=== PATIENT | male | born 1965 | race African-American/Black ===

== ENCOUNTER 2018-12-19 06:57 | Day surgery (SDC) | payer MEDICARE, MEDICAID ==
[2018-12-11 11:21] LABS: HEMATOCRIT 41.2 % (37.9-51.0); HEMOGLOBIN 13.8 g/dL (13.5-17.0); MEAN CORPUSCULAR HEMOGLOBIN 29.5 pg (27.0-33.4); MEAN CORPUSCULAR HGB CONC 33.6 g/dL (32.0-36.0); MEAN CORPUSCULAR VOLUME 88 fl (80-97); PLATELET COUNT 168 10^3/uL (150-450); RED BLOOD COUNT 4.69 10^6/uL (4.35-5.55); RED CELL DISTRIBUTION WIDTH 14.8 % (11.5-14.0); WHITE BLOOD COUNT 4.7 10^3/uL (4.0-10.5)
[2018-12-11 11:46] LABS: ANION GAP 14 (5-19); BLOOD UREA NITROGEN 41 mg/dL (7-20); CALCIUM 10.1 mg/dL (8.4-10.2); CARBON DIOXIDE 23 mmol/L (22-30); CHLORIDE 105 mmol/L (98-107); GLUCOSE 86 mg/dL (75-110); POTASSIUM 4.4 mmol/L (3.6-5.0)
[~2018-12-19 06:57] MED LIST: ACETAMINOPHEN 325 MG TABLET PO PRN; BUPIVACAINE HCL 0.5%-EPI 1:200000 INJ/PF 30 ML VIAL ONE; CEFAZOLIN 1 GM/D5W RTU 1 GM/50 ML RTUPB IV PRN; LACTATED RINGERS 1000 ML IV PRN; LIDOCAINE 0.5% INJ-PF (5 MG/ML) 50 ML SDV SUBCUT PRN
[2018-12-19] MEDS ORDERED: CEFAZOLIN 1 GM/D5W RTU 1 GM/50 ML RTUPB IV ONE (07:03)
[2018-12-19] MEDS ORDERED: HYDROMORPHONE HCL INJ/PF 2 MG/ML AMPULE ONE (08:45)
[2018-12-19] MEDS ORDERED: PROMETHAZINE HCL INJ 25 MG/1 ML VIAL ONE (08:45)
[2018-12-19] MEDS ORDERED: FENTANYL CITRATE INJ/PF 100 MCG/2 ML AMPUL ONE ×2 (08:45→10:46)
[2018-12-19] MEDS ORDERED: ACETAMINOPHEN 1,000 MG/100 ML RTUPB IV ONE (08:46)
[2018-12-19] MEDS ORDERED: PROPOFOL INJ 200 MG/20 ML VIAL IV ONE (08:46)
[2018-12-19] MEDS ORDERED: DEXAMETHASONE SOD PHOSPHATE INJ 4 MG/1 ML VIAL ONE (08:46)
[2018-12-19] MEDS ORDERED: MIDAZOLAM 2 MG/2 ML INJ ONE (08:46)
[2018-12-19] MEDS ORDERED: ONDANSETRON HCL INJ/PF 4 MG/2 ML SDV ONE (08:46)
[2018-12-19] MEDS ORDERED: EPHEDRINE SULFATE INJ 50 MG/1 ML AMPULE ONE (08:46)
[2018-12-19] MEDS ORDERED: DIPHENHYDRAMINE HCL 50 MG/ML VIAL IV PRN (10:09)
[2018-12-19] MEDS ORDERED: PROMETHAZINE HCL INJ 25 MG/1 ML VIAL IV PRN ×2 (10:09)
[2018-12-19] MEDS ORDERED: FENTANYL CITRATE INJ/PF 100 MCG/2 ML AMPUL IV PRN ×2 (10:09)
[2018-12-19] MEDS ORDERED: MORPHINE SULFATE 10 MG/ML INJ IV PRN (10:09)
[2018-12-19] MEDS ORDERED: MEPERIDINE HCL/PF INJ 25 MG/1 ML DISP.SYRIN IV PRN (10:09)
--- NOTE | 2018-12-19 10:42 | Operative Report ---
Nonrecallable Operative Report DATE OF SURGERY: 12/19/18 Operative Report: see dictated note PREOPERATIVE DIAGNOSIS: left inguinal hernia POSTOPERATIVE DIAGNOSIS: left inguinal hernia OPERATION: laparoscopic lih SURGEON: MERLINE WATSON 1ST ZIGZAG ELASTIC ATTACHER: PARAMJIT MENDIOLA ANESTHESIA: GA COMPLICATIONS: none ESTIMATED BLOOD LOSS: 5cc INTRAOPERATIVE FINDINGS: see dictaiton PROCEDURE: see dictation
[2018-12-19] MEDS ORDERED: OXYCODONE-ACETAMINOPHEN 5-325 MG TABLET PO PRN (10:43)
--- NOTE | 2018-12-19 10:43 | Discharge Summary ---
Discharge Summary (SDC) - Discharge Final Diagnosis: left inguinal hernia Date of Surgery: 12/19/18 Discharge Date: 12/19/18 Condition: Good Referrals: JOELLEN IRIZARRY MD [Primary Care Provider] - Discharge Diet: As Tolerated Discharge Activity: No Lifting Over 10 Pounds Report the Following to Your Physician Immediately: Nausea, Vomiting, Increase in Pain, Fever over 101 Degrees, Unusual Bleeding, Redness - need f/u with me in 10-14 days.
[2018-12-19] MEDS: FENTANYL CITRATE INJ/PF 100 MCG/2 ML AMPUL IV PRN ×2 (10:45→10:55)
[2018-12-19] MEDS ORDERED: DEXAMETHASONE SOD PHOS INJ 10 MG/1 ML VIAL ONE (10:46)
[2018-12-19] MEDS: HYDROMORPHONE HCL INJ/PF 2 MG/ML AMPULE ONE ×2 (11:15→11:25)
[2018-12-19] MEDS ORDERED: OXYCODONE-ACETAMINOPHEN 5-325 MG TABLET ONE (12:03)
--- NOTE | 2018-12-19 12:39 | EKG REPORT ---
SEVERITY:- ABNORMAL ECG - SINUS RHYTHM ATRIAL PREMATURE COMPLEX PROBABLE LEFT ATRIAL ABNORMALITY LEFT VENTRICULAR HYPERTROPHY CONSIDER ANTERIOR INFARCT PROLONGED QT INTERVAL : Confirmed by: Liseth Fragoso MD 19-Dec-2018 12:38:15
[2018-12-19 13:41] VITALS: BP 128/77
[2018-12-19] MEDS ORDERED: GLYCOPYRROLATE 1 MG/5 ML SYRINGE ONE (15:19)
[2018-12-19] MEDS ORDERED: NEOSTIGMINE METHYLSULFATE 10 MG/10 ML VIAL ONE (15:19)
[2018-12-19] MEDS ORDERED: SUCCINYLCHOLINE CHLORIDE INJ 200 MG/10 ML VIAL ONE (15:19)
[2018-12-19] MEDS ORDERED: ROCURONIUM BROMIDE INJ 50 MG/5 ML VIAL IV ONE (15:19)
--- NOTE | 2018-12-19 15:23 | OPERATIVE REPORT E ---
Operative Report NAME: CLINT KAUFMAN : 1965 AGE: 52Y DATE OF SURGERY: 12/19/2018 ROOM: PREOPERATIVE DIAGNOSIS: LEFT INGUINAL HERNIA. OPERATION: LEFT INGUINAL HERNIORRHAPHY, LAPAROSCOPIC. SURGEON: MERLINE WATSON M.D. CERTIFIED MASTER LOCKSMITH: Tierra Dee PA-C, who was there for the entire procedure, assisting for retraction and wound closure. PROCEDURE: The patient was brought to the operating room in awake, alert, and stable condition, placed on the operating table in supine position, induced under general anesthesia and intubated. The left groin and abdomen were prepped and draped in the usual sterile manner for the procedure. In the supraumbilical position, I made a curvilinear incision in the skin and carried our dissection down through subcutaneous tissue with Bovie cautery. The external oblique fascia was identified. A transverse incision was made in the anterior rectus sheath, and the rectus muscles retracted laterally. We then placed a space maker balloon underneath the muscle on top of the posterior sheath and traced it down to the pubic tubercle. We then insufflated the balloon under direct vision with the camera inside the balloon. Once we had adequate space, we removed the camera and then removed the space maker balloon and inserted the working trocar tip into the umbilical incision. Retroperitoneal space visualization was excellent. We placed two 5 mm ports in the midline for use with the dissection. Once those ports were placed, we turned attention to the pelvis. Identified the pubic tubercle, Andrei's ligament, the transversalis fascia, and the rectus fascia as well as the lateral edge of the rectus fascia. We identified Hesselbach's triangle on both the right and left side, and noted no evidence of a direct inguinal hernia. We turned our attention to the left side. We identified the cord structures and started mobilizing them with blunt and sharp dissection. We then identified a hernia sac that was facing down the cord structures in through the external ring. We mobilized the cord structures in the sac and dissected the sac away from the cord structures with blunt and sharp dissection and performed a posterior mobilization of the sac. Once this was completed, we then fashioned a piece of polypropylene mesh in a 6 x 4 cm piece with the tails of the mesh placed on the lateral aspect of it. We placed the mesh into the retroperitoneum and fixed the mesh to Andrei's ligament with absorbable tacking device. We fixed the anterior side of the mesh to the undersurface of the rectus muscle and then laterally after wrapping the cord we fixed it to the transversalis muscle, being careful not to injure the lateral femoral cutaneous nerve. Once the mesh was fixed in place, we reduced the pneumoperitoneum and removed the ports. We then closed the umbilical fascial defect with a [id number] 0 Vicryl suture and closed the three skin incisions with intracuticular 4-0 Vicryl, and skin was closed with intracuticular 4-0 Monocryl. Steri-Strips completed the procedure. Estimated blood loss was less than 10 mL. Sponge and needle counts correct x2. The patient was transferred to recovery in stable condition. DICTATING PHYSICIAN: MERLINE WATSON M.D. [id number] PHY#: [id number] ID: [id number] JOB#: [id number] ACCT: [id number] cc:MERLINE WATSON M.D. >
== END 2018-12-19 13:20 | disposition home or self-care (01) ==
LOC: OROUT 06:57
PROVIDERS: ATTEND Surgery
DX: K40.90 Unilateral inguinal hernia, without obstruction or gangrene, not specified as recurrent (principal); I12.0 Hypertensive chronic kidney disease with stage 5 chronic kidney disease or end stage renal disease; N18.6 End stage renal disease; I42.9 Cardiomyopathy, unspecified; F17.210 Nicotine dependence, cigarettes, uncomplicated; Z79.899 Other long term (current) drug therapy; Z88.8 Allergy status to other drugs, medicaments and biological substances; Z99.2 Dependence on renal dialysis; Z01.818 Encounter for other preprocedural examination
CPT/HCPCS: 36415 ×2; 84132; 85027; 80048; 93005; 93010; 49650; C1781; J2250; J0690; J3490 ×3; J1100 ×2; J3010; A9270; J1170; J0330; J2405; J2704; J0131; 830; J2550

== ENCOUNTER 2019-06-26 15:38 | Emergency (ER) | payer MEDICARE, MEDICAID ==
[2019-06-26 15:57] VITALS: BP 148/84
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
--- NOTE | 2019-06-26 17:49 | RADIOLOGY REPORT (SQ) ---
EXAM DESCRIPTION: CHEST 2 VIEWS COMPLETED DATE/TIME: 06/26/2019 5:02 pm REASON FOR STUDY: Relief with 4 nitroglycerin and 4 baby aspirin COMPARISON: 08/22/2016 EXAM PARAMETERS: NUMBER OF VIEWS: two views TECHNIQUE: Digital Frontal and Lateral radiographic views of the chest acquired. RADIATION DOSE: NA LIMITATIONS: none FINDINGS: LUNGS AND PLEURA: Subsegmental atelectasis in the lung bases. MEDIASTINUM AND HILAR STRUCTURES: No masses or contour abnormalities. HEART AND VASCULAR STRUCTURES: Cardiomegaly. No alison pulmonary edema. BONES: No acute findings. HARDWARE: None in the chest. OTHER: No other significant finding. IMPRESSION: Cardiomegaly without pulmonary edema. TECHNICAL DOCUMENTATION: JOB ID: [id number] [employer]- All Rights Reserved Reading location - IP/workstation name: [email or web address]
[2019-06-26 18:28] LABS: INTERNATIONAL RATION (INR) 1.11; PROTHROMBIN TIME 14.3 SEC (11.4-15.4)
[2019-06-26 18:29] LABS: PARTIAL THROMBOPLASTIN TIME 31.7 SEC (23.5-35.8)
[2019-06-26 18:36] LABS: ABSOLUTE BASOPHILS # (AUTO) 0.1 10^3/uL (0.0-0.2); ABSOLUTE LYMPHOCYTES (AUTO) 1.7 10^3/uL (0.5-4.7); ABSOLUTE MONOCYTES (AUTO) 0.6 10^3/uL (0.1-1.4); ABSOLUTE NEUT (AUTO) 3.8 10^3/uL (1.7-8.2); EOSINOPHILS % (AUTO) 0.7 % (0-6); HEMATOCRIT 43.1 % (37.9-51.0); HEMOGLOBIN 14.3 g/dL (13.5-17.0); LYMPHOCYTES % (AUTO) 27.4 % (13-45); MEAN CORPUSCULAR HEMOGLOBIN 29.5 pg (27.0-33.4); MEAN CORPUSCULAR HGB CONC 33.3 g/dL (32.0-36.0); MEAN CORPUSCULAR VOLUME 89 fl (80-97); MONOCYTES % (AUTO) 10.2 % (3-13); PLATELET COUNT 157 10^3/uL (150-450); RED BLOOD COUNT 4.86 10^6/uL (4.35-5.55); RED CELL DISTRIBUTION WIDTH 15.2 % (11.5-14.0); SEGMENTED NEUTROPHILS % (AUTO) 60.7 % (42-78); TOTAL CELLS COUNTED % (AUTO) 100 %; WHITE BLOOD COUNT 6.3 10^3/uL (4.0-10.5)
[2019-06-26 18:42] LABS: ALBUMIN 4.7 g/dL (3.5-5.0); ALKALINE PHOSPHATASE 60 U/L (38-126); ANION GAP 11 (5-19); APPEARANCE,URINE CLEAR; ASPARTATE AMINO TRANSFERASE 21 U/L (17-59); BILIRUBIN,DIRECT 0.2 mg/dL (0.0-0.4); BILIRUBIN,TOTAL 0.6 mg/dL (0.2-1.3); BILIRUBIN,URINE NEGATIVE (NEGATIVE); BLOOD UREA NITROGEN 30 mg/dL (7-20); CALCIUM 9.8 mg/dL (8.4-10.2); CARBON DIOXIDE 26 mmol/L (22-30); CHLORIDE 104 mmol/L (98-107); COLOR,URINE YELLOW; CREATINE KINASE 242 U/L (55-170); GLUCOSE 117 mg/dL (75-110); GLUCOSE, URINE 50 mg/dL (NEGATIVE); KETONES,URINE NEGATIVE (NEGATIVE); LEUKOCYTE ESTERASE,URINE NEGATIVE (NEGATIVE); NITRITE,URINE NEGATIVE (NEGATIVE); POTASSIUM 4.2 mmol/L (3.6-5.0); PROTEIN,URINE 100 mg/dL (NEGATIVE); TOTAL PROTEIN 7.6 g/dL (6.3-8.2); URINE SPECIFIC GRAVITY 1.012; UROBILINOGEN,URINE NEGATIVE mg/dL (<2.0)
[2019-06-26 18:54] LABS: CREATINE KINASE MB 0.98 ng/mL (<4.55); TROPONIN I 0.03 ng/mL
[2019-06-26 19:08] LABS: ADD MANUAL MICROSCOPIC YES
[2019-06-26 19:09] LABS: RBC,URINE RARE /HPF
--- NOTE | 2019-06-27 08:50 | EKG REPORT ---
SEVERITY:- ABNORMAL ECG - SINUS RHYTHM ATRIAL PREMATURE COMPLEX PROBABLE LEFT ATRIAL ABNORMALITY LEFT VENTRICULAR HYPERTROPHY WITH STRAIN PATTERN CONSIDER ANTERIOR INFARCT ABNORMAL T, CONSIDER ISCHEMIA, LATERAL LEADS BORDERLINE PROLONGED QT INTERVAL : Confirmed by: Liseth Fragoso MD 27-Jun-2019 08:48:33
== END 2019-06-26 20:08 | disposition left against medical advice (07) ==
LOC: ER 15:38
DX: R07.9 Chest pain, unspecified (principal); R06.02 Shortness of breath; F17.210 Nicotine dependence, cigarettes, uncomplicated; I13.2 Hypertensive heart and chronic kidney disease with heart failure and with stage 5 chronic kidney disease, or end stage renal disease; N18.6 End stage renal disease; Z99.2 Dependence on renal dialysis; I25.2 Old myocardial infarction; Z91.040 Latex allergy status
CPT/HCPCS: 36415; 71046; 80053; 81001; 82550; 82553; 83690; 84484; 85025; 85610; 85730; 93005; 93010; 99281

== ENCOUNTER 2019-07-01 21:17 | Emergency (ER) | payer MEDICARE, MEDICAID ==
--- NOTE | 2019-07-01 21:48 | ER Document Report ---
ED Medical Screen (RME) - General Chief Complaint: Post Surgical Bleeding Stated Complaint: POST OP COMPLICATION Time Seen by Provider: 07/01/19 21:38 Primary Care Provider: JOELLEN IRIZARRY MD [Primary Care Provider] - Follow up as needed Mode of Arrival: Ambulatory Information source: Patient Notes: This 53-year-old male presents the emergency department with bleeding from his left groin. Reports he had a cardiac cath done at [place] today. He reports it was in preparation for kidney transplant. Patient is on dialysis. He reports that started bleeding around 7:00 tonight and has not stopped. Eating noted. Nurse at bedside began holding pressure right away. I have greeted and performed a rapid initial assessment of this patient. A comprehensive ED assessment and evaluation of the patient, analysis of test results and completion of the medical decision making process will be conducted by additional ED providers. Dictation of this chart was performed using voice recognition software; therefore, there may be some unintended grammatical errors. TRAVEL OUTSIDE OF THE [place] IN LAST 30 DAYS: No - Related Data Allergies/Adverse Reactions: lisinopril [Lisinopril] Allergy (Severe, Verified 07/01/19 21:19) Edema mushroom Allergy (Verified 07/01/19 21:19) latex Adverse Reaction (Verified 07/01/19 21:19) oatmeal Allergy (Uncoded 07/01/19 21:19) Past Medical History - Past Medical History Cardiac Medical History: Reports: Hx Congestive Heart Failure, Hx Heart Attack - x1, Hx Hypertension Denies: Hx Atrial Fibrillation, Hx Coronary Artery Disease, Hx Hypercholesterolemia, Hx Peripheral Vascular Disease, Hx Pulmonary Embolism, Hx Heart Murmur Pulmonary Medical History: Denies: Hx Asthma, Hx Bronchitis, Hx COPD, Hx Pneumonia, Hx Respiratory Failure, Hx Sleep Apnea, Hx Tuberculosis Neurological Medical History: Denies: Hx Cerebrovascular Accident, Hx Seizures Renal/ Medical History: Reports: Hx End Stage Renal Disease. Denies: Hx Benign Prostatic Hyperplasia, Hx Kidney Stones, Hx Peritoneal Dialysis Malignancy Medical History: Denies Hx Lung Cancer GI Medical History: Reports: Hx Gastroesophageal Reflux Disease Musculoskeltal Medical History: Denies Hx Arthritis Psychiatric Medical History: Reports: Hx Depression Denies: Hx Bipolar Disorder, Hx Post Traumatic Stress Disorder, Hx Schizophrenia Past Surgical History: Reports: Hx Orthopedic Surgery - Left hand, Hx Pancreatic Surgery, Hx Vascular Surgery - Left AV fistula. Denies: Hx Appendectomy, Hx Bowel Surgery, Hx Cholecystectomy, Hx Coronary Artery Bypass Graft, Hx Gastric Bypass Surgery, Hx Herniorrhaphy, Hx Pacemaker, Hx Tonsillectomy - Immunizations Hx Diphtheria, Pertussis, Tetanus Vaccination: Yes History of Influenza Vaccine for 07/2017 - 12/2017 Season: Yes Influenza Administration Date for 07/2017 - 12/2017 Season: 09/14/18 Physical Exam - Vital signs Vitals: Temp Pulse Resp BP Pulse Ox 98.7 F 93 18 199/91 H 95 07/01/19 21:23 07/01/19 21:23 07/01/19 21:23 07/01/19 21:23 07/01/19 21:23 Course - Vital Signs Vital signs: Temp Pulse Resp BP Pulse Ox 98.7 F 93 18 199/91 H 95 07/01/19 21:23 07/01/19 21:23 07/01/19 21:23 07/01/19 21:23 07/01/19 21:23 Doctor's Discharge - Discharge Referrals: JOELLEN IRIZARRY MD [Primary Care Provider] - Follow up as needed
[2019-07-01 22:09] LABS: ABSOLUTE LYMPHOCYTES (AUTO) 1.1 10^3/uL (0.5-4.7); ABSOLUTE NEUT (AUTO) 9.3 10^3/uL (1.7-8.2); BASOPHILS % (AUTO) 0.3 % (0-2); HEMATOCRIT 38.5 % (37.9-51.0); HEMOGLOBIN 12.9 g/dL (13.5-17.0); LYMPHOCYTES % (AUTO) 9.5 % (13-45); MEAN CORPUSCULAR HEMOGLOBIN 29.7 pg (27.0-33.4); MEAN CORPUSCULAR HGB CONC 33.5 g/dL (32.0-36.0); MEAN CORPUSCULAR VOLUME 89 fl (80-97); MONOCYTES % (AUTO) 8.5 % (3-13); PLATELET COUNT 164 10^3/uL (150-450); RED BLOOD COUNT 4.34 10^6/uL (4.35-5.55); RED CELL DISTRIBUTION WIDTH 15.7 % (11.5-14.0); SEGMENTED NEUTROPHILS % (AUTO) 81.7 % (42-78); TOTAL CELLS COUNTED % (AUTO) 100 %; WHITE BLOOD COUNT 11.3 10^3/uL (4.0-10.5)
--- NOTE | 2019-07-01 22:21 | ER Document Report ---
ED General - General Chief Complaint: Post Surgical Bleeding Stated Complaint: POST OP COMPLICATION Time Seen by Provider: 07/01/19 22:21 Primary Care Provider: JOELLEN IRIZARRY MD [Primary Care Provider] - Follow up as needed Mode of Arrival: Ambulatory Information source: Patient, Relative Notes: HISTORY OF PRESENT ILLNESS: Patient is a 53-year-old male with a past medical history of end-stage renal failure on dialysis who presents with left groin bleeding from a heart catheterization from earlier today. Patient reports that he presented to outside hospital for a scheduled cardiac catheterization, reports had no complications and the catheterization results "were good." Patient reports that they put an occlusive dressing on his left groin sheath site and initially had no bleeding, however after he went home he started to continue bleeding from the same site and is unsure how much blood he lost. Currently he has no other symptoms other than mild groin pain. Location: Left groin Onset: Prior to arrival Provocation: Heart catheterization Quality: Aching, bleeding Radiation: None Severity: Mild Timing: Constant Associated symptoms: None REVIEW OF SYSTEMS: CONSTITUTIONAL : Denies fever or chills, no sweats. Denies recent illness. EENT: Denies eye, ear, throat, or mouth pain or symptoms. Denies nasal or sinus congestion. CARDIOVASCULAR: Denies chest pain. RESPIRATORY: Denies cough, cold, or chest congestion. Denies shortness of delonte ath, difficulty breathing, or wheezing. GASTROINTESTINAL: Denies abdominal pain. Denies nausea, vomiting, or diarrhea. Denies constipation. GENITOURINARY: Denies difficulty urinating, painful urination, burning, frequency, or blood in urine. MUSCULOSKELETAL: Positive for left groin tenderness and bleeding. Denies neck or back pain or joint pain or swelling. SKIN: Denies rash or skin lesions. HEMATOLOGIC : Denies easy bruising or bleeding. LYMPHATIC: Denies swollen, enlarged glands. NEUROLOGICAL: Denies altered mental status or loss of consciousness. Denies headache. Denies weakness or paralysis or loss of use of either side. Denies problems with gait or speech. Denies sensory or motor loss. PSYCHIATRIC: Denies anxiety or stress or depression. All other systems reviewed and negative. PHYSICAL EXAMINATION: GENERAL: Well-appearing, well-nourished and in no acute distress. HEAD: Atraumatic, normocephalic. No scalp deformity, depression, or crepitance. EYES: Pupils are 3 mm and equal/round/reactive to light, extraocular movements intact, sclera anicteric, conjunctiva are normal. ENT: Nares patent bilaterally, oropharynx clear without exudates or palatal petechia. Moist mucous membranes. No tonsil hypertrophy. NECK: Normal range of motion, supple without lymphadenopathy. LUNGS: Breath sounds present, equal, and clear to auscultation bilaterally. No wheezes, rales, or rhonchi. HEART: Regular rate and rhythm without murmurs, rubs, or gallops. 2+ peripheral pulses. Normal capillary refill. ABDOMEN: Soft, nontender, nondistended. Normoactive bowel sounds. No guarding, no rebound. No masses appreciated. BACK: Normal contour, no midline tenderness. Rectal exam deferred. GENITAL: Slow and persistent bleeding from left groin vascular catheterization site, controlled with direct pressure. EXTREMITIES: Normal range of motion, no pitting or edema. No cyanosis. NEUROLOGICAL: No focal neurological deficits. Moves all extremities spontaneously and on command. PSYCH: Normal mood, normal affect. No suicidal thoughts/ideations. No homicidal thoughts/ideations. No hallucinations. SKIN: Warm, dry, normal turgor, no rashes or lesions noted. ASSESSMENT AND PLAN: This patient is a 53-year-old male who presents with bleeding from a left groin catheterization site. 1. Will obtain bloods to check blood counts. 2. Will apply compressive dressing and reassess. TRAVEL OUTSIDE OF THE [place] IN LAST 30 DAYS: No - HPI Onset: This evening Onset/Duration: Gradual Quality of pain: Achy Severity: Mild Pain Level: 1 Associated symptoms: None Exacerbated by: Movement Relieved by: Denies Similar symptoms previously: Yes Recently seen / treated by doctor: No - Related Data Allergies/Adverse Reactions: lisinopril [Lisinopril] Allergy (Severe, Verified 07/01/19 21:19) Edema mushroom Allergy (Verified 07/01/19 21:19) latex Adverse Reaction (Verified 07/01/19 21:19) oatmeal Allergy (Uncoded 07/01/19 21:19) Past Medical History - General Information source: Patient, Relative - Social History Smoking Status: Unknown if Ever Smoked Chew tobacco use (# tins/day): No Frequency of alcohol use: None Drug Abuse: None Lives with: Family Family History: Reviewed & Not Pertinent Patient has suicidal ideation: No Patient has homicidal ideation: No - Past Medical History Cardiac Medical History: Reports: Hx Congestive Heart Failure, Hx Heart Attack - x1, Hx Hypertension Denies: Hx Atrial Fibrillation, Hx Coronary Artery Disease, Hx Hypercholesterolemia, Hx Peripheral Vascular Disease, Hx Pulmonary Embolism, Hx Heart Murmur Pulmonary Medical History: Reports: None Denies: Hx Asthma, Hx Bronchitis, Hx COPD, Hx Pneumonia, Hx Respiratory Failure, Hx Sleep Apnea, Hx Tuberculosis EENT Medical History: Reports: None Neurological Medical History: Reports: None. Denies: Hx Cerebrovascular Accident, Hx Seizures Endocrine Medical History: Reports: None Renal/ Medical History: Reports: Hx End Stage Renal Disease. Denies: Hx Benign Prostatic Hyperplasia, Hx Kidney Stones, Hx Peritoneal Dialysis Malignancy Medical History: Reports None, Denies Hx Lung Cancer GI Medical History: Reports: Hx Gastroesophageal Reflux Disease Musculoskeletal Medical History: Reports None, Denies Hx Arthritis Skin Medical History: Reports None Psychiatric Medical History: Reports: Hx Depression Denies: Hx Bipolar Disorder, Hx Post Traumatic Stress Disorder, Hx Schizoph monika Traumatic Medical History: Reports: None Infectious Medical History: Reports: None Past Surgical History: Reports: Hx Orthopedic Surgery - Left hand, Hx Pancreatic Surgery, Hx Vascular Surgery - Left AV fistula. Denies: Hx Appendectomy, Hx Bowel Surgery, Hx Cholecystectomy, Hx Coronary Artery Bypass Graft, Hx Gastric Bypass Surgery, Hx Herniorrhaphy, Hx Pacemaker, Hx Tonsillectomy - Immunizations Hx Diphtheria, Pertussis, Tetanus Vaccination: Yes Review of Systems - Review of Systems Constitutional: No symptoms reported EENT: No symptoms reported Cardiovascular: No symptoms reported Respiratory: No symptoms reported Gastrointestinal: No symptoms reported Genitourinary: No symptoms reported Male Genitourinary: No symptoms reported Musculoskeletal: See HPI, Other - Groin bleeding Skin: No symptoms reported Hematologic/Lymphatic: No symptoms reported Neurological/Psychological: No symptoms reported -: Yes All other systems reviewed and negative Physical Exam - Vital signs Vitals: Temp Pulse Resp BP Pulse Ox 98.7 F 93 18 199/91 H 95 07/01/19 21:23 07/01/19 21:23 07/01/19 21:23 07/01/19 21:23 07/01/19 21:23 Interpretation: Normal Course - Re-evaluation Re-evalutation: 07/02/19 00:16 Bleeding has been controlled. Repeat labs are within the patient's baseline. Will discharge the patient home with strict return precautions and follow-up with primary care. All results were explained to and discussed with the patient, and all questions addressed and answered for the patient. The patient and his voice both understanding and agreeing with the plan. - Vital Signs Vital signs: Temp Pulse Resp BP Pulse Ox 98.7 F 93 16 171/97 H 95 07/01/19 21:23 07/01/19 21:23 07/01/19 22:15 07/01/19 22:15 07/01/19 22:15 - Laboratory Result Diagrams: 07/01/19 21:50 07/01/19 21:50 Laboratory results interpreted by me: 07/01/19 07/01/19 21:50 21:50 WBC 11.3 H RBC 4.34 L Hgb 12.9 L RDW 15.7 H Lymph % (Auto) 9.5 L Absolute Neuts (auto) 9.3 H Seg Neutrophils % 81.7 H Carbon Dioxide 21 L BUN 48 H Creatinine 5.65 H Est GFR ( Amer) 13 L Est GFR (MDRD) Non-Af 11 L Glucose 150 H Calcium 10.4 H Discharge - Discharge Clinical Impression: Bleeding of blood vessel Condition: Good Disposition: HOME, SELF-CARE Additional Instructions: You have been evaluated in the Emergency Department for bleeding from the catheterization site. While here, you had blood work that was normal and it is now safe to be discharged home. Please follow-up with your primary physician as instructed in one week to be rechecked. Return to the Emergency Department if you experience continued bleeding, dizziness, weakness, or any other concerning symptoms. Referrals: JOELLEN IRIZARRY MD [Primary Care Provider] - Follow up as needed Print Language: Azeri
[2019-07-01 22:28] LABS: ALBUMIN 4.3 g/dL (3.5-5.0); ALKALINE PHOSPHATASE 55 U/L (38-126); ANION GAP 12 (5-19); ASPARTATE AMINO TRANSFERASE 18 U/L (17-59); BILIRUBIN,DIRECT 0.3 mg/dL (0.0-0.4); BILIRUBIN,TOTAL 0.4 mg/dL (0.2-1.3); BLOOD UREA NITROGEN 48 mg/dL (7-20); CALCIUM 10.4 mg/dL (8.4-10.2); CARBON DIOXIDE 21 mmol/L (22-30); CHLORIDE 106 mmol/L (98-107); GLUCOSE 150 mg/dL (75-110); POTASSIUM 4.5 mmol/L (3.6-5.0); TOTAL PROTEIN 7.3 g/dL (6.3-8.2)
[2019-07-01 22:32] LABS: INTERNATIONAL RATION (INR) 1.12; PARTIAL THROMBOPLASTIN TIME 30.2 SEC (23.5-35.8); PROTHROMBIN TIME 14.5 SEC (11.4-15.4)
[2019-07-01] MEDS ORDERED: HYDROCODONE/ACETAMINOPHEN 5-325 MG TABLET PO ONE (22:57)
[2019-07-02 00:29] VITALS: BP 184/95
== END 2019-07-02 00:36 | disposition home or self-care (01) ==
LOC: ER 21:17
DX: I97.610 Postprocedural hemorrhage of a circulatory system organ or structure following a cardiac catheterization (principal); Y84.0 Cardiac catheterization as the cause of abnormal reaction of the patient, or of later complication, without mention of misadventure at the time of the procedure; I12.0 Hypertensive chronic kidney disease with stage 5 chronic kidney disease or end stage renal disease; N18.6 End stage renal disease; Z99.2 Dependence on renal dialysis; Z88.8 Allergy status to other drugs, medicaments and biological substances; Z91.018 Allergy to other foods
CPT/HCPCS: 36415; 85025; 85610; 85730; 80053; A9270

== ENCOUNTER 2019-07-02 09:10 | Emergency (ER) | payer MEDICARE, MEDICAID ==
--- NOTE | 2019-07-02 09:38 | ER Document Report ---
ED Medical Screen (RME) - General Chief Complaint: Post Surgical Bleeding Stated Complaint: POST OP COMPLICATION Time Seen by Provider: 07/02/19 09:30 Primary Care Provider: JOELLEN IRIZARRY MD [Primary Care Provider] - Follow up as needed TRAVEL OUTSIDE OF THE [place] IN LAST 30 DAYS: No - HPI Notes: 07/02/19 09:38 53-year-old male to the emergency department with complaints of persistent bleeding to heart cath site in his groin. States that he had a heart cath in [place] yesterday and he has had trouble having bleeding from the site since. He was here in the ER last night as well. He states that he supposed to have dialysis this morning at 11 AM but he was concerned about the persistent bleeding and so came to the emergency department again. He states that when he tries to stand up he feels lightheaded and might pass out. Denies any alison syncopal episodes since this started. He is not on a blood thinner. I performed a brief medical screening exam on the patient and determined that he will need further management from inside provider. Have ordered basic labs to include a PT and INR as well as a hemoglobin. - Related Data Allergies/Adverse Reactions: lisinopril [Lisinopril] Allergy (Severe, Verified 07/02/19 09:15) Edema iodine Allergy (Verified 07/02/19 09:15) mushroom Allergy (Verified 07/02/19 09:15) latex Adverse Reaction (Verified 07/02/19 09:15) oatmeal Allergy (Uncoded 07/01/19 21:19) Past Medical History - Past Medical History Cardiac Medical History: Reports: Hx Congestive Heart Failure, Hx Heart Attack - x1, Hx Hypertension Denies: Hx Atrial Fibrillation, Hx Coronary Artery Disease, Hx Hypercholesterolemia, Hx Peripheral Vascular Disease, Hx Pulmonary Embolism, Hx Heart Murmur Pulmonary Medical History: Denies: Hx Asthma, Hx Bronchitis, Hx COPD, Hx Pneumonia, Hx Respiratory Fail ure, Hx Sleep Apnea, Hx Tuberculosis Neurological Medical History: Denies: Hx Cerebrovascular Accident, Hx Seizures Renal/ Medical History: Reports: Hx End Stage Renal Disease. Denies: Hx Benign Prostatic Hyperplasia, Hx Kidney Stones, Hx Peritoneal Dialysis Malignancy Medical History: Denies Hx Lung Cancer GI Medical History: Reports: Hx Gastroesophageal Reflux Disease Musculoskeltal Medical History: Denies Hx Arthritis Psychiatric Medical History: Reports: Hx Depression Denies: Hx Bipolar Disorder, Hx Post Traumatic Stress Disorder, Hx Schizophrenia Past Surgical History: Reports: Hx Orthopedic Surgery - Left hand, Hx Pancreatic Surgery, Hx Vascular Surgery - Left AV fistula. Denies: Hx Appendectomy, Hx Bowel Surgery, Hx Cholecystectomy, Hx Coronary Artery Bypass Graft, Hx Gastric Bypass Surgery, Hx Herniorrhaphy, Hx Pacemaker, Hx Tonsillectomy - Immunizations Hx Diphtheria, Pertussis, Tetanus Vaccination: Yes History of Influenza Vaccine for 07/2017 - 12/2017 Season: Yes Influenza Administration Date for 07/2017 - 12/2017 Season: 09/14/18 Physical Exam - Vital signs Vitals: Temp Pulse Resp BP Pulse Ox 98.3 F 82 18 182/100 H 100 07/02/19 09:20 07/02/19 09:20 07/02/19 09:20 07/02/19 09:20 07/02/19 09:20 Course - Vital Signs Vital signs: Temp Pulse Resp BP Pulse Ox 98.3 F 82 18 182/100 H 100 07/02/19 09:20 07/02/19 09:20 07/02/19 09:20 07/02/19 09:20 07/02/19 09:20 Doctor's Discharge - Discharge Referrals: JOELLEN IRIZARRY MD [Primary Care Provider] - Follow up as needed
[2019-07-02 10:07] LABS: ABSOLUTE BASOPHILS # (AUTO) 0.1 10^3/uL (0.0-0.2); ABSOLUTE LYMPHOCYTES (AUTO) 1.9 10^3/uL (0.5-4.7); ABSOLUTE MONOCYTES (AUTO) 1.2 10^3/uL (0.1-1.4); ABSOLUTE NEUT (AUTO) 10.2 10^3/uL (1.7-8.2); BASOPHILS % (AUTO) 0.5 % (0-2); EOSINOPHILS % (AUTO) 0.2 % (0-6); HEMATOCRIT 37.2 % (37.9-51.0); HEMOGLOBIN 12.6 g/dL (13.5-17.0); LYMPHOCYTES % (AUTO) 14.5 % (13-45); MEAN CORPUSCULAR HGB CONC 33.9 g/dL (32.0-36.0); MEAN CORPUSCULAR VOLUME 88 fl (80-97); MONOCYTES % (AUTO) 8.7 % (3-13); PLATELET COUNT 152 10^3/uL (150-450); RED CELL DISTRIBUTION WIDTH 15.7 % (11.5-14.0); SEGMENTED NEUTROPHILS % (AUTO) 76.1 % (42-78); TOTAL CELLS COUNTED % (AUTO) 100 %; WHITE BLOOD COUNT 13.4 10^3/uL (4.0-10.5)
[2019-07-02 10:10] LABS: INTERNATIONAL RATION (INR) 1.17
[2019-07-02 10:11] LABS: PARTIAL THROMBOPLASTIN TIME 29.9 SEC (23.5-35.8)
[2019-07-02 10:24] LABS: ALBUMIN 4.2 g/dL (3.5-5.0); ALKALINE PHOSPHATASE 53 U/L (38-126); ANION GAP 12 (5-19); ASPARTATE AMINO TRANSFERASE 17 U/L (17-59); BILIRUBIN,DIRECT 0.2 mg/dL (0.0-0.4); BILIRUBIN,TOTAL 0.4 mg/dL (0.2-1.3); BLOOD UREA NITROGEN 47 mg/dL (7-20); CALCIUM 9.8 mg/dL (8.4-10.2); CARBON DIOXIDE 23 mmol/L (22-30); CHLORIDE 107 mmol/L (98-107); GLUCOSE 93 mg/dL (75-110); POTASSIUM 3.9 mmol/L (3.6-5.0); TOTAL PROTEIN 6.9 g/dL (6.3-8.2)
[2019-07-02] MEDS ORDERED: ACETAMINOPHEN 325 MG TABLET PO ONE (10:28)
--- NOTE | 2019-07-02 10:28 | ER Document Report ---
ED General - General Chief Complaint: Post Surgical Bleeding Stated Complaint: POST OP COMPLICATION Time Seen by Provider: 07/02/19 09:30 Primary Care Provider: JOELLEN IRIZARRY MD [Primary Care Provider] - Follow up in 3-5 days Notes: Patient is a 53-year-old male who presents to the emergency department with a c hief complaint of bleeding to his left groin. He had a cardiac cath done yesterday, which was normal. He was seen here in the emergency department last night and the bleeding was controlled and he was sent home. He states that he was not doing anything in particular and he was laying on his back and the bleeding started again. He has a past medical history of chronic kidney disease on hemodialysis and hypertension. TRAVEL OUTSIDE OF THE [place] IN LAST 30 DAYS: No - Related Data Allergies/Adverse Reactions: lisinopril [Lisinopril] Allergy (Severe, Verified 07/02/19 09:15) Edema iodine Allergy (Verified 07/02/19 09:15) mushroom Allergy (Verified 07/02/19 09:15) latex Adverse Reaction (Verified 07/02/19 09:15) oatmeal Allergy (Uncoded 07/01/19 21:19) Past Medical History - Social History Smoking Status: Former Smoker Frequency of alcohol use: None Drug Abuse: None Family History: Reviewed & Not Pertinent Patient has suicidal ideation: No Patient has homicidal ideation: No - Past Medical History Cardiac Medical History: Reports: Hx Congestive Heart Failure, Hx Heart Attack - x1, Hx Hypertension Denies: Hx Atrial Fibrillation, Hx Coronary Artery Disease, Hx Hypercholesterolemia, Hx Peripheral Vascular Disease, Hx Pulmonary Embolism, Hx Heart Murmur Pulmonary Medical History: Denies: Hx Asthma, Hx Bronchitis, Hx COPD, Hx Pneumonia, Hx Respiratory Failure, Hx Sleep Apnea, Hx Tuberculosis Neurological Medical History: Denies: Hx Cerebrovascular Accident, Hx Seizures Renal/ Medical History: Reports: Hx End Stage Renal Disease. Denies: Hx Benign Prostatic Hyperplasia, Hx Kidney Stones, Hx Peritoneal Dialysis Malignancy Medical History: Denies Hx Lung Cancer GI Medical History: Reports: Hx Gastroesophageal Reflux Disease Musculoskeletal Medical History: Denies Hx Arthritis Psychiatric Medical History: Reports: Hx Depression Denies: Hx Bipolar Disorder, Hx Post Traumatic Stress Disorder, Hx Schizophrenia Past Surgical History: Reports: Hx Orthopedic Surgery - Left hand, Hx Pancreatic Surgery, Hx Vascular Surgery - Left AV fistula. Denies: Hx Appendectomy, Hx Bowel Surgery, Hx Cholecystectomy, Hx Coronary Artery Bypass Graft, Hx Gastric Bypass Surgery, Hx Herniorrhaphy, Hx Pacemaker, Hx Tonsillectomy - Immunizations Hx Diphtheria, Pertussis, Tetanus Vaccination: Yes Review of Systems - Review of Systems Notes: REVIEW OF SYSTEMS: CONSTITUTIONAL : Denies recent illness. Denies recent unintentional weight loss. Denies fever, chills, or sweats. EENT: Denies eye, ear, throat, or mouth pain, discharge, or symptoms. Denies nasal or sinus congestion. CARDIOVASCULAR: Denies chest pain. RESPIRATORY: Denies shortness of breath, cough, congestion, difficulty breathing, or wheezing. GASTROINTESTINAL: Denies nausea, vomiting, and diarrhea. Denies abdominal pain. Denies constipation. GENITOURINARY: Denies difficulty urinating, burning, blood in urine, urgency or frequency. MUSCULOSKELETAL: Denies neck and back pain. Denies joint pain or swelling. SKIN: Denies rash, itchiness, or lesions HEMATOLOGIC : See HPI. LYMPHATIC: Denies swollen, painful, enlarged glands. NEUROLOGICAL: Denies no numbness or tingling denies weakness. Denies headache. Denies altered mental status. Denies alteration in speech. PSYCHIATRIC: Denies stress, anxiety, alteration in sleep patterns, or depression. All other systems reviewed and negative. Physical Exam - Vital signs Vitals: Temp Pulse Resp BP Pulse Ox 98.3 F 82 18 182/100 H 100 07/02/19 09:20 07/02/19 09:20 07/02/19 09:20 07/02/19 09:20 07/02/19 09:20 - Notes Notes: PHYSICAL EXAMINATION: GENERAL: Appears well, healthy, well-nourished, no acute distress. HEAD: Normocephalic, atraumatic. EYES: PERRL, conjunctiva normal, all extraocular movements intact, sclera nonicteric ENT: Moist mucous membranes. NECK: Supple, no noticeable swelling, redness, rash. Normal range of motion. LUNGS: Equal breath sounds bilaterally and clear to auscultation. No wheezes rales or rhonchi. CARDIOVASCULAR: S1-S2, regular rate, regular rhythm. Radial pulses 2+, normal. ABDOMEN: Normoactive bowel sounds. Soft, nontender, no guarding, no rebound tenderness, and no masses palpated. EXTREMITIES: Normal strength and range of motion, no pitting or edema. No cyanosis. NEUROLOGICAL: Moves all extremities upon command. Strength 5/5 in all extre mities. PSYCH: Normal mood, normal affect. SKIN: Warm, dry. No rash, lesions, ulcerations noted. Normal skin turgor. Left groin heart cath site oozing blood. Course - Re-evaluation Re-evalutation: 07/02/19 10:37 Patient is supposed to be dialysis at 11:00 this morning. He is concerned about not being able to go to dialysis today. I spoke with the charge nurse and she will see if we have dialysis capabilities today. Patient's hemoglobin hematocrit are stable compared to earlier. Chemistries are normal. 07/02/19 13:22 Patient's bleeding has slowed down significantly compared to earlier with the quick clot. The patient will follow up with [facility] in regards to this visit. Follow-up precautions were given. Verbal discharge instructions were given to the patient. They verbalized understanding. They are stable for discharge. Documentation was completed using voice recognition software, therefore there may be some unintended grammatical or punctual errors. - Vital Signs Vital signs: Temp Pulse Resp BP Pulse Ox 98.3 F 82 18 195/94 H 96 07/02/19 09:20 07/02/19 09:20 07/02/19 13:01 07/02/19 13:00 07/02/19 13:01 - Laboratory Result Diagrams: 07/02/19 09:55 07/02/19 09:55 Laboratory results interpreted by me: 07/02/19 07/02/19 09:55 09:55 WBC 13.4 H RBC 4.20 L Hgb 12.6 L Hct 37.2 L RDW 15.7 H Absolute Neuts (auto) 10.2 H BUN 47 H Creatinine 5.89 H Est GFR ( Amer) 12 L Est GFR (MDRD) Non-Af 10 L Discharge - Discharge Clinical Impression: Bleeding of blood vessel Condition: Stable Disposition: HOME, SELF-CARE Additional Instructions: You were seen today in the emergency department for bleeding of your heart cath site. The bleeding was controlled with quick clot. Please do not remove the dressing until tomorrow. Please continue to hold pressure if needed. Follow-up with your primary care provider and your heart cath doctor. Referrals: JOELLEN IRIAZRRY MD [Primary Care Provider] - Follow up in 3-5 days
[2019-07-02] MEDS ORDERED: OXYCODONE HCL IR 5 MG TABLET PO ONE (12:20)
[2019-07-02 13:35] VITALS: BP 195/94
== END 2019-07-02 13:53 | disposition home or self-care (01) ==
LOC: ER 09:10
DX: I97.610 Postprocedural hemorrhage of a circulatory system organ or structure following a cardiac catheterization (principal); I13.2 Hypertensive heart and chronic kidney disease with heart failure and with stage 5 chronic kidney disease, or end stage renal disease; N18.6 End stage renal disease; I50.9 Heart failure, unspecified; Z99.2 Dependence on renal dialysis; Z91.040 Latex allergy status; Z88.6 Allergy status to analgesic agent
CPT/HCPCS: 36415; 85025; 85610; 85730; 80053; A9270 ×2; 99283

== ENCOUNTER → 2019-07-15 | Outpatient (CLI) | payer MEDICARE, MEDICAID ==
--- NOTE | 2019-07-15 12:17 | RADIOLOGY REPORT (SQ) ---
EXAM DESCRIPTION: DUPLEX ART/MELVA FLOW COMPLETE COMPLETED DATE/TIME: 07/15/2019 9:43 am REASON FOR STUDY: I15.9 SECONDARY HYPERTENSION, UNSPECIFIED I15.9 SECONDARY HYPERTENSION, UNSPECIFI ED COMPARISON: None. TECHNIQUE: Realtime and static grayscale images acquired. Selected color Doppler, velocities and spe ctral images recorded. LIMITATIONS: Limited visualization of the renal artery origins off the aorta. Measurements were mary en at the renal charanjit FINDINGS: RIGHT KIDNEY: RENAL ARTERY VELOCITIES: At the hilum, 76 cm/sec. Segmental artery velocity 25 cm/sec. RENAL VEIN: Color doppler flow present, patent. VELOCITY RATIO: 0.7. Normal waveforms. KIDNEY: Right kidney is 7.3 cm in length, with diffuse cortical thinning and increased echogenicity. No hydronephrosis. No stones. LEFT KIDNEY: RENAL ARTERY VELOCITIES: At the hilum, 53 cm/sec. Segmental artery velocity 71 cm/sec. RENAL VEIN: Color doppler flow present, patent. VELOCITY RATIO: 0.49. Normal waveforms. KIDNEY: Left kidney is 8 cm in length with diffuse cortical thinning and increased echogenicity. 1 cm pole cyst. No hydronephrosis. No stones. BLADDER: Normal. OTHER: Prostate 5.8 x 5.8 cm in size IMPRESSION: NO DOPPLER EVIDENCE OF HEMODYNAMICALLY SIGNIFICANT RENAL ARTERY STENOSIS. COMMENT: NORMAL RENAL ARTERY/AORTA VELOCITY RATIO IS LESS THAN OR EQUAL TO 3.5. TECHNICAL DOCUMENTATION: JOB ID: [id number] [employer]- All Rights Reserved Reading location - IP/workstation name: [email or web address]
== END ==
LOC: RAD 08:20
PROVIDERS: ATTEND Physician Assistant Medical
DX: I15.9 Secondary hypertension, unspecified (principal)
CPT/HCPCS: 93975